=== PATIENT | female | born 1955 | race Caucasian/White ===

== ENCOUNTER 2019-02-18 22:25 | Inpatient (IN) | payer MEDICARE, OTHER, SELFPAY ==
[2019-02-18 22:25] VITALS: BP 135/84; PULSE 77; RESP 18; TEMP 36.4; O2SAT 95
[2019-02-18 22:45] VITALS: BMI 27.1
[2019-02-18 22:56] VITALS: BMI 26.4
--- NOTE | 2019-02-18 23:36 | PM.IMHP ---
H&P: HPI History of Present Illness Chief complaint: ACUTE LOWER GI BLEED Narrative: This is a pleasant 63 year old female with known past medical history of chronic hypothyroidism and chronic pain syndrome who presented to our hospital as a direct admission from [facility] with a lower GI bleed. The patient woke up this morning around 3:00 a.m. with lower abdominal cramping and a loose stool with bright red rectal bleeding. The patient had a total of 3 episodes of rectal bleeding at home today during the day which gradually became darker in color. Associated symptoms included nausea and dry heaving. She denies any fevers or chills. She denies any history of previous bleeding. On arrival to [facility] she also had 3 episodes of bright red bleeding while she was in the emergency room there. She denies any associated shortness of breath, chest pain, lightheadedness. CT abdomen pelvis was obtained at [facility] and did demonstrate left-sided colitis, diverticulosis and a pinpoint nonobstructing right renal stone. She has no previous history of diverticular disease. Her last colonoscopy was in 2013 which was apparently normal. She is not known to be on any blood thinners. She does not use any NSAIDs. She has no previous history of GI bleeds. She denies any other significant symptoms at this time. The patient was transferred to our hospital as they did not have GI coverage overnight at [facility]. Review of Systems Review of Systems: All systems reviewed & are unremarkable except as noted in HPI and below PMFSH Past Medical History Medical History Chronic pain syndrome (Chronic) Hypothyroidism (Chronic) Surgical History Surgical History History of laparoscopic adjustable gastric banding (Acute) History of right hip replacement (Acute) Family History Family History Mother Atrial fibrillation Other Unknown family medical history Social History Social History Smoking packs per day: 0.5 Smoking cigarettes per day: 10.0 Years smoked: 30 Smoking pack-years: 15.00 Smoking status: Current every day smoker Tobacco type: cigarettes Second hand tobacco smoke exposure: Yes Alcohol intake: never Substance use: never Gender identity (if verbalized by the patient): Female Spiritual care concerns: No Agree to blood products: Yes Meds Home Medications and Allergies Home Medications Medication Instructions Recorded Confirmed Type bupropion HCl 150 mg PO DAILY 02/18/19 02/18/19 History estradiol 1 mg PO DAILY 02/18/19 02/18/19 History hydrocodone-acetaminophen [[place]] 1 tablet PO Q4H PRN 02/18/19 02/18/19 History hydrocodone-acetaminophen [[place]] 1 tablet PO Q6H PRN 02/18/19 02/18/19 History levothyroxine [Synthroid] 112 mcg PO DAILY 02/18/19 02/18/19 History medroxyprogesterone [Provera] 2.5 mg PO DAILY 02/18/19 02/18/19 History meloxicam 15 mg PO DAILY 02/18/19 02/18/19 History tizanidine 2 mg PO TID 02/18/19 02/18/19 History ciprofloxacin HCl [Cipro] 500 mg PO Q12H 7 Days #14 tablet 02/20/19 Rx metronidazole 500 mg PO Q8H 7 Days #21 tablet 02/20/19 Rx Allergies Allergy/AdvReac Type Severity Reaction Status Date / Time codeine AdvReac Nausea and Verified 02/20/19 07:10 Vomiting Vital Signs Vital Signs - 24 hr 02/18/19 22:25 Temperature 36.4 C Pulse Rate 77 Respiratory Rate 18 Blood Pressure 135/84 Pulse Oximetry 95 Exam Const: General: cooperative, healthy appearing, no acute distress, alert and awake Nutritional Appearance: well nourished Orientation/consciousness: oriented x3 HENMT: Head: normal to inspection General nose exam: external nose normal Face and sinus: normal facial exam Mouth: Yes oral m
[2019-02-18 23:51] LABS: Hematocrit 44.7 % (37.0-47.0); Hemoglobin 15.1 g/dL (12.0-15.0)
[2019-02-18 23:52] VITALS: BP 135/86; PULSE 88; RESP 19; TEMP 36.6; O2SAT 96
--- NOTE | 2019-02-18 23:57 | ADMGEN ---
This patient, Leatha Olivares, was admitted to IMU Room 202-. Patient/family oriented to hospital policies and general routines including ID bracelet, bed and alarms, visiting hours, pain management, procedures, bathroom and other care routines, personal items, smoking policy, room service/diet, and visiting hours. Valuables list has been completed. Information on how to activate the Rapid Response Team has been discussed. Patient/Family are encouraged to report perceived risks to care and to ask questions if they do not understand what they are told or what they should do.
[2019-02-19] VITALS (9 sets, daily range): BP systolic 119–135; BP diastolic 50–76; PULSE 63–94; RESP 16–20; TEMP 36.8–37.1; O2SAT 94–96
[2019-02-19] MEDS: PANTOPRAZOLE SODIUM IV 40 MG VIAL IV PUSH ×3 (00:48→20:48)
[2019-02-19] MEDS: CIPROFLOXACIN 400 MG/D5W 200ML 200 ML 200 MG IVPB ×3 (00:48→23:07)
[2019-02-19] MEDS: SODIUM CHLORIDE 0.9% IV 1,000 ML 125 ML IV CONT ×2 (00:49→11:38)
[2019-02-19] MEDS: metroNIDAZOLE 500 MG/ISO 100ML 500 MG/100 ML BAG 100 MG IVPB ×3 (00:49→16:24)
[2019-02-19 05:07] LABS: Basophils Percent Auto 0.2 % (0.2-1.2); Eosinophils Percent Auto 0.2 % (0-4.4); Hemoglobin 14.2 g/dL (12.0-15.0); Immature Granulocyte Absolute 0.06 K/mm3 (0.00-0.031); Immature Granulocyte Percent A 0.5 % (0-0.5); Lymphocytes Absolute Auto 1.56 K/mm3 (0.9-3.2); Mean Corpuscular HGB Conc 33.8 g/dl (32-36); Mean Corpuscular Hemoglobin 32.3 pg (26-34); Mean Corpuscular Volume 95.7 fl (80-100); Mean Platelet Volume 9.9 fl (7.4-10.4); Monocytes Absolute Auto 0.8 K/mm3 (0.1-0.6); Monocytes Percent Auto 6.1 % (2.6-8.5); Neutrophils Absolute Auto 10.6 K/mm3 (1.3-6.7); Platelet Count Result 197 k/mm3 (150-375); Red Blood Count 4.39 M/mm3 (4.2-5.4); Red Cell Distribution Width 13.4 % (11.5-14.5)
[2019-02-19 05:20] LABS: Blood Urea Nitrogen 10 mg/dL (7-17); Calcium 8.2 mg/dL (8.4-10.2); Carbon Dioxide 25 mmol/L (22-30); Chloride 103 mmol/L (98-107); Estimated CRCL calculation 67 ml/min; Estimated Glomerular Filt Rate > 60; Glucose 105 mg/dL (65-105); Potassium 3.4 mmol/L (3.4-5.0); Sodium 135 mmol/L (137-145)
--- NOTE | 2019-02-19 11:03 | WPDGICN ---
Assessment and Plan Assessment and plan (1) Lower GI bleed: Code(s): K92.2 - Gastrointestinal hemorrhage, unspecified Status: Acute Assessment and Plan: Lower GI bleeding noted. Clinically this appears most consistent with diverticular bleeding. Recent CT scan suggest she may have colitis. Her hemoglobin has essentially remains stable, Suggesting minimal actual bleeding. Plan is to monitor hemoglobin closely. Proceed with preparation for colonoscopy. Colonoscopy to be performed tomorrow after prep today. (2) Abnormal CT scan, colon: Code(s): R93.3 - Abnormal findings on diagnostic imaging of other parts of digestive tract Status: Acute Assessment and Plan: CT scan suggest colitis colonoscopy in a.m. will be performed to further define this abnormality. Consult date/time: 02/19/19 11:03 HPI: Leatha Olivares is a 63 year old female seen at request of hospitalist service. Patient in usual state of health began to have blood in her stools around 3:00 a.m. Tuesday morning. This prompted her to go to [facility]. She was transferred here because of lack of GI coverage. Patient describes large amount of bright red blood per rectum. She is quite anxious about this. She denies any abdominal pain. She has never had bleeding to this degree before. Patient is had no significant GI blood loss in the past. She denies being on blood thinners or nonsteroidal anti inflammatory agents. A CT scan in [place] suggested diverticulosis and left-sided colitis Review of Systems Review of Systems: All systems reviewed & are unremarkable except as noted in HPI and below Psychiatric: Comments: anxiety PMFSH Past Medical History Medical History Chronic pain syndrome (Acute) Hypothyroidism (Acute) Surgical History Surgical History History of laparoscopic adjustable gastric banding (Acute) History of right hip replacement (Acute) Family History Family History Mother Atrial fibrillation Other Unknown family medical history Social History Social History Smoking packs per day: 0.5 Smoking cigarettes per day: 10.0 Years smoked: 30 Smoking pack-years: 15.00 Smoking status: Current every day smoker Tobacco type: cigarettes Second hand tobacco smoke exposure: Yes Alcohol intake: never Substance use: never Gender identity (if verbalized by the patient): Female Spiritual care concerns: No Agree to blood products: Yes Meds Home Medications and Allergies Home Medications Medication Instructions Recorded Confirmed Type bupropion HCl 150 mg PO DAILY 02/18/19 02/18/19 History estradiol 1 mg PO DAILY 02/18/19 02/18/19 History hydrocodone-acetaminophen [[place]] 1 tablet PO Q4H PRN 02/18/19 02/18/19 History hydrocodone-acetaminophen [[place]] 1 tablet PO Q6H PRN 02/18/19 02/18/19 History levothyroxine [Synthroid] 112 mcg PO DAILY 02/18/19 02/18/19 History medroxyprogesterone [Provera] 2.5 mg PO DAILY 02/18/19 02/18/19 History meloxicam 15 mg PO DAILY 02/18/19 02/18/19 History tizanidine 2 mg PO TID 02/18/19 02/18/19 History Allergies Allergy/AdvReac Type Severity Reaction Status Date / Time codeine AdvReac Nausea and Verified 02/18/19 22:44 Vomiting Vital Signs Vital Signs - 24 hr 02/18/19 22:25 02/18/19 23:52 02/19/19 00:00 Temperature 36.4 C 36.6 C Pulse Rate 77 88 91 Respiratory Rate 18 19 Blood Pressure 135/84 135/86 Pulse Oximetry 95 96 02/19/19 02:00 02/19/19 04:00 02/19/19 06:00 Temperature 37.1 C Pulse Rate 77 69 92 Respiratory Rate 20 Blood Pressure 123/68 Pulse Oximetry 94 L 02/19/19 08:00 02/19/19 10:00 Temperature 36.8 C Pulse Rate 90 94 Respiratory Rate 16 Blood Pressure 119/62 Pulse Oximetry 94 L
--- NOTE | 2019-02-19 11:07 | PM.IMPN ---
Progress Note: A&P Assessment and Plan (1) Lower GI bleed: Code(s): K92.2 - Gastrointestinal hemorrhage, unspecified Status: Acute Assessment and Plan: Has already been seen by GI and appreciate input. Plan for colonoscopy today. Hemoglobin and hematocrit remain stable currently. Continue to monitor H&H. Has not required transfusion. Telemetry reviewed with sinus rhythm on 02/19/2019. Will transfer medical floor stable. (2) Acute colitis: Code(s): K52.9 - Noninfective gastroenteritis and colitis, unspecified Status: Acute Assessment and Plan: As seen on CT from outside hospital. Will continue IV ciprofloxacin and metronidazole for now. WBC 13.0 today. Will monitor. (3) Hypokalemia: Code(s): E87.6 - Hypokalemia Status: Acute Assessment and Plan: Potassium 3.4 today. Will give oral replacement as anticipate may decrease with prep for colonoscopy. Will continue to monitor and replace as needed. (4) Hypothyroidism: Qualifiers: Hypothyroidism type: acquired Qualified Code(s): E03.9 - Hypothyroidism, unspecified Code(s): E03.9 - Hypothyroidism, unspecified Status: Chronic Assessment and Plan: Stable. Received levothyroxine IV this morning due to NPO status. As she will be NPO in the morning for procedure, will give IV levothyroxine again tomorrow but anticipate transition back to oral after that time. (5) Chronic pain syndrome: Code(s): G89.4 - Chronic pain syndrome Status: Chronic Assessment and Plan: No acute issue at the present time. Hold home [place] today. Acetaminophen available as needed. Will monitor. (6) DVT prophylaxis: Code(s): Z29.9 - Encounter for prophylactic measures, unspecified Status: Acute Assessment and Plan: SCDs. Time Spent With Patient Time with patient: 15 - 25 minutes Subjective Interval history: Date of Service: 02/19/2019. Admitted with rectal bleeding. Patient was directly transferred from outside hospital due to need for GI consultation. She still does not feel well this morning having lower abdominal cramping. She does note blood is still present in stool but decreasing. No nausea or vomiting. No chest pain. No shortness of breath. No headaches or dizziness. Review of Systems Review of Systems: Narrative: Still does not feel well. Constitutional: Constitutional: Denies fatigue and Denies fever(s) ENT: Denies nasal discharge Cardiovascular: Cardiovascular: Denies chest pain and Denies palpitations Respiratory: Respiratory: Denies dyspnea Gastrointestinal: Gastrointestinal: Reports abdominal pain (Lower abdominal cramping), Reports hematochezia, Denies nausea and Denies vomiting Genitourinary: Genitourinary: Denies hematuria Musculoskeletal: Musculoskeletal: Reports no additional musculoskeletal complaints Integumentary/Breasts: Skin/Breast: Denies rash Neurologic: Denies headache(s) Psychiatric: Psychiatric: Denies confusion Exam Narrative: Exam Narrative: Awake and alert. Const: General: no acute distress HENMT: Mouth: Yes moist mucous membranes Neck: Neck: supple Lymphatic: lymphadenopathy not noted Resp: Auscultation: clear to auscultation bilaterally, no rales and no wheezes Cardio: Rate: regular rate Rhythm: regular rhythm GI: Inspection: non-distended Palpation (GI): Yes soft and Yes tender (Mild in the suprapubic area; no rebound or guarding) Auscultation: normal bowel sounds Skin: General skin exam: no rashes or lesions noted Neuro: Speech: normal speech Motor exam (neuro): muscle tone normal throughout Extrem: General: no edema Psych: Mental Status: mental status grossly normal Affect: normal affect Objective Data Vital Signs Vital Signs: Vital Signs - 24 hr 02/18/19 22:25 02/18/19 23:52 02/19/19 00:00 Temperature 36.4 C 36.6 C Pulse Rate 77 88 91 Respiratory Rate 18 19 Blood Pressure 135/84 135/
[2019-02-19] MEDS: PEG (High)/E-LYTE SOLN 4,000 ML BTL 4000 ML PO (11:38)
[2019-02-19] MEDS: POTASSIUM CHLORIDE 20 MEQ PACKET (FOR LIQUID) 40 MEQ PO (11:39)
--- NOTE | 2019-02-19 13:27 | PC.NURSE ---
This patient, Leatha Olivares, was transferred to [facility] on 02/19/19 at 1327. Personal belongings sent with patient. Report given to ALEXEY Huertas. Appropriate documentation sent with patient.
--- NOTE | 2019-02-19 14:04 | PC.NURSE ---
This patient, Leatha Olivares, was received from IMU on 02/19/19 at 1404. Personal belongings list checked and signed. Patient/family oriented to unit policies and routines
[2019-02-19] MEDS: ACETAMINOPHEN 325 MG TABLET 650 MG PO (16:48)
[2019-02-19] MEDS: SODIUM CHLORIDE 0.9% IV 1,000 ML 100 ML IV CONT (23:10)
[2019-02-20] MEDS: metroNIDAZOLE 500 MG/ISO 100ML 500 MG/100 ML BAG 100 MG IVPB ×2 (00:05→09:23)
[2019-02-20] MEDS: ONDANSETRON INJ 4 MG/2 ML VIAL IV PUSH (03:08)
[2019-02-20 06:00] VITALS: BP 145/79; PULSE 78; RESP 18; TEMP 36.8; O2SAT 98
[2019-02-20 06:28] LABS: Hematocrit 39.1 % (37.0-47.0); Hemoglobin 13.4 g/dL (12.0-15.0); Mean Corpuscular HGB Conc 34.3 g/dl (32-36); Mean Corpuscular Hemoglobin 32.3 pg (26-34); Mean Corpuscular Volume 94.2 fl (80-100); Mean Platelet Volume 9.9 fl (7.4-10.4); Platelet Count Result 199 k/mm3 (150-375); Red Blood Count 4.15 M/mm3 (4.2-5.4); Red Cell Distribution Width 13.3 % (11.5-14.5); White Blood Count 14.1 K/mm3 (4.5-10.0)
[2019-02-20 06:36] LABS: Blood Urea Nitrogen 6 mg/dL (7-17); Carbon Dioxide 23 mmol/L (22-30); Chloride 106 mmol/L (98-107); Estimated CRCL calculation 91 ml/min; Estimated Glomerular Filt Rate > 60; Glucose 101 mg/dL (65-105); Magnesium 1.6 mg/dL (1.6-2.3); Potassium 3.3 mmol/L (3.4-5.0); Sodium 137 mmol/L (137-145)
[2019-02-20 07:11] VITALS: BP 125/58; PULSE 72; RESP 16; TEMP 36.9; O2SAT 96
[2019-02-20] MEDS: LACTATED RINGERS 1,000 ML 150 ML IV CONT (07:19)
--- NOTE | 2019-02-20 07:19 | WPDANESEPPF ---
Anes - Initial Pre Proc Eval Procedure: Operation Date: 02/20/19 08:00 Proposed Procedures p Colonoscopy - Sivakumar Nicholas MD Date/Time: 02/20/19 07:19 Surgeon: Juan A Espinosa MD Pre Op Diagnosis: ACUTE LOWER GI BLEED Patient Data Age: 63 Gender: F Height: 5 ft 7 in Weight: 77.8 kg Last Vital Signs Temp 36.9 C 02/20/19 07:11 Pulse 72 02/20/19 07:11 Resp 16 02/20/19 07:11 BP 125/58 L 02/20/19 07:11 Pulse Ox 96 02/20/19 07:11 Allergies Allergy/AdvReac Type Severity Reaction Status Date / Time codeine AdvReac Nausea and Verified 02/20/19 07:10 Vomiting Home Medications Medication Instructions Recorded Confirmed Type bupropion HCl 150 mg PO DAILY 02/18/19 02/18/19 History estradiol 1 mg PO DAILY 02/18/19 02/18/19 History hydrocodone-acetaminophen [[place]] 1 tablet PO Q4H PRN 02/18/19 02/18/19 History hydrocodone-acetaminophen [[place]] 1 tablet PO Q6H PRN 02/18/19 02/18/19 History levothyroxine [Synthroid] 112 mcg PO DAILY 02/18/19 02/18/19 History medroxyprogesterone [Provera] 2.5 mg PO DAILY 02/18/19 02/18/19 History meloxicam 15 mg PO DAILY 02/18/19 02/18/19 History tizanidine 2 mg PO TID 02/18/19 02/18/19 History Laboratory Tests 02/20/19 02/20/19 06:12 06:12 WBC 14.1 K/mm3 H K/mm3 (4.5-10.0) RBC 4.15 M/mm3 L M/mm3 (4.2-5.4) Hgb 13.4 g/dL g/dL (12.0-15.0) Hct 39.1 % % (37.0-47.0) MCV 94.2 fl fl (80-100) MCH 32.3 pg pg (26-34) MCHC 34.3 g/dl g/dl (32-36) RDW 13.3 % % (11.5-14.5) Plt Count 199 k/mm3 k/mm3 (150-375) MPV 9.9 fl fl (7.4-10.4) Sodium 137 mmol/L mmol/L (137-145) Potassium 3.3 mmol/L L mmol/L (3.4-5.0) Chloride 106 mmol/L mmol/L (98-107) Carbon Dioxide 23 mmol/L mmol/L (22-30) BUN 6 mg/dL L mg/dL (7-17) Creatinine 0.50 mg/dL L mg/dL (0.7-1.0) Estim Creat Clear Calc 91 ml/min ml/min Estimated GFR > 60 (59 - ) Glucose 101 mg/dL mg/dL (65-105) Calcium 8.0 mg/dL L mg/dL (8.4-10.2) Magnesium 1.6 mg/dL mg/dL (1.6-2.3) Patient hx anesthesia problems: none Family hx anesthesia problems: none [facility] Past Medical History Medical History Chronic pain syndrome (Chronic) Hypothyroidism (Chronic) Surgical History Surgical History History of laparoscopic adjustable gastric banding (Acute) History of right hip replacement (Acute) Family History Family History Mother Atrial fibrillation Other Unknown family medical history Social History Social History Smoking packs per day: 0.5 Smoking cigarettes per day: 10.0 Years smoked: 30 Smoking pack-years: 15.00 Smoking status: Current every day smoker Tobacco type: cigarettes Second hand tobacco smoke exposure: Yes Alcohol intake: never Substance use: never Gender identity (if verbalized by the patient): Female Spiritual care concerns: No Agree to blood products: Yes Anes - Eval Final PreProcedure Day of Procedure 02/20/19 07:19 Patient weight: overweight Heart: regular rate and rhythm Lungs: decreased breath sounds Airway: Mallampati scale class II Neurological: alert and oriented Last oral intake: >/= 8 hours ASA classification: III Emergent: no Anesthetic plan: proceed Anesthesia type and monitoring: general GIVS and standard monitoring Informed Consent: The patient's anesthetic plan and its attendant risks and benefits were discussed with the patient/family/POA. Questions were solicited and answers provided to the satisfaction of the patient/family/POA.
--- NOTE | 2019-02-20 08:11 | SUR.OPER ---
PATIENT'S EYE GLASSES SENT TO POST-OP RECOVERY AREA
[2019-02-20] MEDS: SIMETHICONE ORAL SUSPENSION 20 MG/0.3 ML 30 ML BOTTLE PO (08:18)
[2019-02-20 08:25] VITALS: BP 97/56; PULSE 79; RESP 18; O2SAT 97
[2019-02-20 08:35] VITALS: BP 104/67; PULSE 66; RESP 20; O2SAT 98
[2019-02-20 08:45] VITALS: BP 115/64; PULSE 70; RESP 20; O2SAT 98
[2019-02-20 09:20] VITALS: BP 140/75; PULSE 79; RESP 16; TEMP 36.7; O2SAT 99
[2019-02-20] MEDS: PANTOPRAZOLE SODIUM IV 40 MG VIAL IV PUSH (09:23)
[2019-02-20] MEDS: CIPROFLOXACIN 400 MG/D5W 200ML 200 ML 200 MG IVPB (11:31)
[2019-02-20] MEDS: POTASSIUM CHLORIDE 20 MEQ PACKET (FOR LIQUID) 40 MEQ PO (11:32)
--- NOTE | 2019-02-20 11:33 | PM.DS ---
DS: Diagnosis Admitting Diagnosis Admitting Diagnosis: Gastrointestinal hemorrhage, unspecified Discharge Diagnosis (1) Lower GI bleed: Code(s): K92.2 - Gastrointestinal hemorrhage, unspecified Status: Acute Assessment and Plan: Patient with lower GI bleed on admission. Hgb 15 on admission and it dropped to 13.4 at time of discharge. No further bleeding noted. Seen by GI and colonoscopy planned. HH remained stable. Colonoscopy showing ischemic colitis, diverticulosis and internal hemorrhoids. No active bleeding noted. (2) Acute colitis: Code(s): K52.9 - Noninfective gastroenteritis and colitis, unspecified Status: Acute Assessment and Plan: As seen on CT scan from outside hospital. WBC 13K and afebrile. Patient was treated with IV ciprofloxacin and metronidazole. Patient underwent colonoscopy showing mid sigmoid colon with moderate inflammation seen as erythematous, edematous with ulcerations. WBC slightly higher at 14K today. GI felt the findings suspicious for ischemic colitis but did recommend a week of abx. Biopsies taken and are pending. (3) Hypokalemia: Code(s): E87.6 - Hypokalemia Status: Acute Assessment and Plan: Potassium 3.3 today. Potassium was low end of normal on admission and oral replacement given. Further decrease today related to the prep for colonoscopy. Will replace again prior to discharge. (4) Hypothyroidism: Qualifiers: Hypothyroidism type: acquired Qualified Code(s): E03.9 - Hypothyroidism, unspecified Code(s): E03.9 - Hypothyroidism, unspecified Status: Chronic Assessment and Plan: Stable. Patient NPO and was placed on levothyroxine IV. No TSH checked here and will need to be monitored by PCP. (5) Chronic pain syndrome: Code(s): G89.4 - Chronic pain syndrome Status: Chronic Assessment and Plan: Patient has chronic pain. No acute issue during her time here. The home [place] was held. Acetaminophen was available as needed. (6) Tobacco abuse: Code(s): Z72.0 - Tobacco use Status: Acute Assessment and Plan: Educated about the benefits of smoking cessation DS: Summary Hospital Course Reason for hospitalization: 63 year old female with known past medical history of chronic hypothyroidism and chronic pain syndrome who presented to our hospital as a direct admission from [facility] with a lower GI bleed. Hospital Course: See above Status at Discharge Functional status at discharge: independent ambulation Overall status at discharge: patient is back to baseline Time Spent with Patient Time attestation: Total time spent providing and/or coordinating discharge services: Time spent: Greater than 30 minutes Specific discharge activities: 32 minutes Exam Narrative: Exam Narrative: Gen - NARD sitting at the side of bed Chest - CTA bilaterally, nml RR CV - RRR S1/S2 Abd - Soft, NT/ND, Positive BS Ext - No pedal edema Psych - Nml mood and affect Skin - Warm and dry DS: Data Data Completed and Pending Completed studies during hospitalization: Colonoscopy Pending studies at discharge: Pending at discharge 02/20/19 08:41 Surgical [PTH] Routine Labs on day of discharge: Labs from last 24 hours 02/20/19 02/20/19 06:12 06:12 WBC 14.1 H RBC 4.15 L Hgb 13.4 Hct 39.1 MCV 94.2 MCH 32.3 MCHC 34.3 RDW 13.3 Plt Count 199 MPV 9.9 Sodium 137 Potassium 3.3 L Chloride 106 Carbon Dioxide 23 BUN 6 L Creatinine 0.50 L Estim Creat Clear Calc 91 Estimated GFR > 60 Glucose 101 Calcium 8.0 L Magnesium 1.6 Preliminary micro results at discharge 02/19/19 00:57 Blood Culture - Preliminary Blood 02/19/19 00:31 Blood Culture - Preliminary Blood Discharge Plan Discharge Attending physician on discharge: Samm Escobar Consulting providers: Janice
== END 2019-02-20 13:25 | disposition home or self-care (01) | DRG 347 ==
LOC: ANHIMU 02-19 11:15 → ANH3MEDSUR 02-20 11:53 → ANHIMU 02-27 10:55
PROVIDERS: Hospitalist; Internal Medicine Gastroenterology; Admitting Provider Family Medicine; Visit Provider Internal Medicine
PROC: 0DJD8ZZ Inspection of Lower Intestinal Tract, Via Natural or Artificial Opening Endoscopic (ICD-10-PCS; CPT 45378; principal; 2019-02-20 08:00)
DX: K92.2 Gastrointestinal hemorrhage, unspecified (principal); K55.039 Acute (reversible) ischemia of large intestine, extent unspecified; K57.30 Diverticulosis of large intestine without perforation or abscess without bleeding; K64.8 Other hemorrhoids; E87.6 Hypokalemia; E03.9 Hypothyroidism, unspecified; G89.4 Chronic pain syndrome; F17.210 Nicotine dependence, cigarettes, uncomplicated; Z28.21 Immunization not carried out because of patient refusal; Z98.84 Bariatric surgery status; Z96.641 Presence of right artificial hip joint
CPT/HCPCS: 36415; 80048; 83735; 85014; 85018; 85025; 85027; 87040; 88305; A9270; C9113; J0131; J0744; J2405; J2704; J7030; J7120